=== PATIENT | female | born 1950 | race Caucasian/White ===

== ENCOUNTER 2018-01-09 20:26 | Emergency (ER) | payer MEDICARE, OTHER, SELFPAY | END 2018-01-09 23:56 | disposition home or self-care (01) | PROVIDERS: Emergency Provider Emergency Medicine; Visit Provider Emergency Medicine | DX: M54.9 Dorsalgia, unspecified (principal) | CPT/HCPCS: 72100; 81003; 96372; 99283; J1885 ==